=== PATIENT | female | born 1970 | race Caucasian/White ===

== ENCOUNTER 2025-07-15 09:18 | Outpatient (CLI) | payer BC, SELFPAY ==
--- NOTE | ~2025-07-15 | CT_ITS ---
CT abdomen pelvis w con Clinical History: ABDOMINAL PAIN . Comparison: None Technique: Axial images lung bases to symphysis pubis IV contrast information not listed in PACS Coronal, sagittal reformats CT images acquired with automatic exposure control for dose reduction DLP: 379 mGy-cm Findings: Lung bases: Clear. Visualized heart and pericardium: Unremarkable. Liver: Steatosis. Gallbladder: Unremarkable. Spleen: Unremarkable. Pancreas: Unremarkable. Adrenal glands: Unremarkable. Kidneys: Right kidney- No hydronephrosis. No renal stones. Left kidney- No hydronephrosis. No renal stones. Distal esophagus/stomach: Mild gastric antral wall thickening but under distended. Small bowel loops: Normal caliber and wall thickness. Colon: Normal caliber and wall thickness. Appendix not identified. Nodes: No enlarged nodes. Peritoneum: No ascites. No free air. Urinary bladder: Unremarkable. Uterus: Unremarkable. Adnexa: No masses. Bones: No acute bony abnormality. Soft tissues: Right breast nodule 12:00. Aorta: No aneurysm or dissection. IVC: Unremarkable. Main portal vein/SMV/splenic vein: Patent. IMPRESSION: 1. Mild gastritis not excluded. 2. Right breast nodule. Recommend ultrasound and/or mammogram. Reviewed, dictated and finalized at location R.
== END 2025-07-15 09:19 | disposition home or self-care (01) ==
PROVIDERS: PCP Family Medicine; Visit Provider Registered Nurse
DX: R10.9 Unspecified abdominal pain (principal); R92.8 Other abnormal and inconclusive findings on diagnostic imaging of breast
CPT/HCPCS: 74177; Q9967